=== PATIENT | female | born 1940 | race Caucasian/White ===

== ENCOUNTER 2017-09-20 17:16 | Inpatient (IN) | payer MEDICARE, MEDICAID ==
[~2017-09-20] VITALS: Ht 170.2 cm; Wt 74.6 kg
[2017-09-20] MEDS: normal saline 1000ml 1,000 ML IV SCH (19:37)
[2017-09-20] MEDS ORDERED: ondansetron/PF 4mg/2ml inj IV PRN (19:40)
[2017-09-20] MEDS ORDERED: potassium CL 20mEq in D5-1/2NS 1,000 ML IV PRN (19:44)
[2017-09-20] MEDS: K and/or MAG REPLACEMENT MC SCH (19:45)
[2017-09-20] MEDS ORDERED: sodium phosphate inj. 30 MMOL in dextrose 5%-water 250 ML IV PRN (19:45)
[2017-09-20] MEDS ORDERED: potassium Cl 40MEQ/NS 500ml 500 ML IV PRN (19:45)
[2017-09-20] MEDS ORDERED: sodium phosphate inj. 15 MMOL in dextrose 5%-water 150 ML IV PRN (19:45)
[2017-09-20] MEDS ORDERED: insulin regular, human vial - multi-dose SQ PRN (20:55)
[2017-09-20 20:57] LABS: CLARITY,URINE CLEAR (Clear); COLOR,URINE YELLOW (Yellow); GLUCOSE, URINE >=1000 mg/dl (Neg); KETONES,URINE 40 mg/dl (Neg); LEUKOCYTE ESTERASE ,URINE NEGATIVE (Neg); NITRITES, URINE NEGATIVE (Neg); OCCULT BLOOD,URINE LARGE (Neg); PROTEIN,URINE 30 mg/dl (Neg); UROBILINOGEN,URINE 0.2 E.U/dL (0.2-1.0)
[2017-09-20 21:00] VITALS: BP 102/40
[2017-09-20 21:00] LABS: UA COLLECTION TYPE NON-SPECIFIED
[2017-09-20 21:19] LABS: RBC,URINE 20-50 /HPF (0-2); WBC,URINE 0-4 /HPF (0-4)
[2017-09-20 21:20] LABS: AMORPHOUS URATES 2+; BACTERIA,URINE FEW /HPF (Neg); MUCUS STRANDS FEW /LPF (Neg); SQUAMOUS EPITHELIAL CELL,UR FEW /LPF (FEW)
[2017-09-20 21:20] LABS: BASOPHILS # (AUTO) 0.1 X10'3 (0-0.2); BASOPHILS % (AUTO) 0.2 % (0-1); EOSINOPHILS % (AUTO) 0.2 % (0-6); HEMOGLOBIN 11.6 g/dl (12.0-16.0); LYMPHOCYTES # (AUTO) 2.1 X10'3 (1.1-4.8); LYMPHOCYTES % (AUTO) 9.7 % (21-51); MEAN CORPUSCULAR HEMOGLOBIN 28.8 PG (27.0-31.0); MEAN CORPUSCULAR HGB CONC 33.3 % (33.0-36.5); MEAN CORPUSCULAR VOLUME 86.5 FL (78-98); MEAN PLATELET VOLUME 9.8 FL (7.4-10.4); MONOCYTES # (AUTO) 1.4 X10'3 (0-0.9); MONOCYTES % (AUTO) 6.6 % (2-12); NEUTROPHILS % (AUTO) 83.3 % (42-75); PLATELET COUNT 236 X10'3 (140-440); RED BLOOD COUNT 4.04 X10'6 (4.20-5.60); RED CELL DISTRIBUTION WIDTH 14.1 % (11.5-14.5); WHITE BLOOD COUNT 21.7 X10'3 (4.5-11.0)
[2017-09-20 21:21] LABS: CELLULAR CAST 0-4 /LPF (NEGATIVE); FINE GRANULAR CAST 0-3 /LPF (NEGATIVE)
[2017-09-20] MEDS: pantoprazole 40 MG vial IV SCH (21:28)
[2017-09-20 21:43] LABS: ALANINE AMINOTRANSFERASE 31 U/L (12-78); ALBUMIN 2.8 G/DL (3.4-5.0); ALKALINE PHOSPHATASE 158 IU/L (46-116); ANION GAP 24 (8-16); ASPARTATE AMINO TRANSFERASE 35 U/L (10-37); BILIRUBIN,TOTAL 0.4 MG/DL (0.1-1.0); BLOOD UREA NITROGEN 72 MG/DL (7-18); BUN/CREATININE RATIO 32.7 (6.6-38.0); CALCIUM 7.2 MG/DL (8.5-10.1); CHLORIDE 107 MMOL/L (99-107); MAGNESIUM 2.1 MG/DL (1.5-2.4); PHOSPHORUS 5.3 MG/DL (2.3-4.5); POTASSIUM 4.1 MMOL/L (3.5-5.1); SODIUM 141 MMOL/L (135-145); TOTAL PROTEIN 5.5 G/DL (6.4-8.2); eGFR 22 ML/MIN
[2017-09-20 21:47] LABS: TOTAL CARBON DIOXIDE 9.9 MMOL/L (24-32)
[2017-09-20 21:48] LABS: INR 1.2 INR; PROTHROMBIN TIME 12.1 SECONDS (9.0-12.0); TROPONIN I 4.35 NG/ML (0.0-0.05)
[2017-09-20] MEDS: insulin regular, DKA only 100 UNIT in normal saline 100ml IV soln 99 ML IV SCH ×2 (21:59)
[2017-09-20 22:00] VITALS: BP 102/44
[2017-09-20 22:03] LABS: GLUCOSE 639 MG/DL (70-104)
[2017-09-20 22:43] LABS: PARTIAL THROMBOPLASTIN TIME > 153 SECONDS (22-32)
[2017-09-20 23:00] VITALS: BP 97/45
[2017-09-20 23:11] LABS: ABG BASE EXCESS -15.2 mmol/L (-2.0-3.0); ABG OXYGEN SATURATION 96.6 % (95-98); ABG PCO2 (T) 22.2 mmHg (32.0-45.0); ABG PH (T) 7.268 (7.350-7.450); ABG PO2 (T) 83.8 mmHg (83-108); ALLEN'S TEST Positive; FCOHb 0.3 % (0.5-1.5); FMetHb 0.1 % (0.3-1.12); FO2Hb 96.2 % (94-100); PATIENT TEMPERATURE 36.2; RESPIRATORY RATE (OBSERVED) 16 b/min; TOTAL HEMOGLOBIN 12.1 G/dl (12.0-16.0)
[2017-09-20 23:15] LABS: PLATELET ESTIMATE NORMAL; TOTAL CELLS COUNTED 100
[2017-09-20 23:29] LABS: ALBUMIN 2.7 G/DL (3.4-5.0); ANION GAP 21 (8-16); BLOOD UREA NITROGEN 70 MG/DL (7-18); BUN/CREATININE RATIO 31.7 (6.6-38.0); CALCIUM 7.7 MG/DL (8.5-10.1); CHLORIDE 111 MMOL/L (99-107); CREATININE 2.21 MG/DL (0.40-0.90); PHOSPHORUS 3.8 MG/DL (2.3-4.5); POTASSIUM 3.8 MMOL/L (3.5-5.1); SODIUM 143 MMOL/L (135-145); eGFR 22 ML/MIN
[2017-09-20 23:35] LABS: GLUCOSE 557 MG/DL (70-104); TOTAL CARBON DIOXIDE 10.9 MMOL/L (24-32)
[2017-09-21] VITALS (23 sets, daily range): BP systolic 105–178; BP diastolic 44–80
[2017-09-21] MEDS: insulin regular, DKA only 100 UNIT in normal saline 100ml IV soln 99 ML IV SCH ×18 (00:05→23:59)
[2017-09-21 02:51] LABS: ALANINE AMINOTRANSFERASE 32 U/L (12-78); ALBUMIN 2.6 G/DL (3.4-5.0); ALBUMIN/GLOBULIN RATIO 1.1 (1.1-1.5); ALKALINE PHOSPHATASE 133 IU/L (46-116); ANION GAP 15 (8-16); ASPARTATE AMINO TRANSFERASE 53 U/L (10-37); BILIRUBIN,TOTAL 0.3 MG/DL (0.1-1.0); BLOOD UREA NITROGEN 74 MG/DL (7-18); BUN/CREATININE RATIO 33.8 (6.6-38.0); CALCIUM 7.3 MG/DL (8.5-10.1); CHLORIDE 114 MMOL/L (99-107); CREATININE 2.19 MG/DL (0.40-0.90); MAGNESIUM 1.9 MG/DL (1.5-2.4); PHOSPHORUS 2.5 MG/DL (2.3-4.5); SODIUM 146 MMOL/L (135-145); TOTAL CARBON DIOXIDE 16.7 MMOL/L (24-32); eGFR 22 ML/MIN
[2017-09-21] MEDS ORDERED: insulin R INFUSION 1 ML IV ONE (03:00)
[2017-09-21 03:02] LABS: TROPONIN I 13.21 NG/ML (0.0-0.05)
[2017-09-21 03:23] LABS: GLUCOSE 397 MG/DL (70-104)
[2017-09-21] MEDS: normal saline 1000ml 1,000 ML IV SCH ×3 (04:01→19:37)
[2017-09-21] MEDS ORDERED: potassium Cl 40MEQ/NS 500ml 500 ML IV ONE (04:14)
[2017-09-21 05:22] LABS: BASOPHILS % (AUTO) 0.1 % (0-1); EOSINOPHILS % (AUTO) 0 % (0-6); HEMATOCRIT 33.3 % (35.0-45.0); HEMOGLOBIN 11.4 g/dl (12.0-16.0); LYMPHOCYTES # (AUTO) 0.9 X10'3 (1.1-4.8); LYMPHOCYTES % (AUTO) 5.4 % (21-51); MEAN CORPUSCULAR HEMOGLOBIN 29.2 PG (27.0-31.0); MEAN CORPUSCULAR HGB CONC 34.1 % (33.0-36.5); MEAN CORPUSCULAR VOLUME 85.7 FL (78-98); MEAN PLATELET VOLUME 9.9 FL (7.4-10.4); MONOCYTES # (AUTO) 1.1 X10'3 (0-0.9); MONOCYTES % (AUTO) 6.1 % (2-12); NEUTROPHILS # (AUTO) 15.5 X10'3 (1.8-7.7); NEUTROPHILS % (AUTO) 88.4 % (42-75); PLATELET COUNT 221 X10'3 (140-440); RED BLOOD COUNT 3.89 X10'6 (4.20-5.60); RED CELL DISTRIBUTION WIDTH 14.3 % (11.5-14.5); WHITE BLOOD COUNT 17.5 X10'3 (4.5-11.0)
[2017-09-21] MEDS ORDERED: dextrose 5%-1/2 normal saline 1,000 ML IV SCH (05:26)
[2017-09-21 05:32] LABS: INR 1.1 INR; PARTIAL THROMBOPLASTIN TIME 28 SECONDS (22-32); PROTHROMBIN TIME 11.4 SECONDS (9.0-12.0)
[2017-09-21 06:06] LABS: ALBUMIN 2.7 G/DL (3.4-5.0); ANION GAP 14 (8-16); BLOOD UREA NITROGEN 71 MG/DL (7-18); CALCIUM 7.6 MG/DL (8.5-10.1); CHLORIDE 116 MMOL/L (99-107); CREATININE 2.15 MG/DL (0.40-0.90); PHOSPHORUS 2.5 MG/DL (2.3-4.5); SODIUM 147 MMOL/L (135-145); TOTAL CARBON DIOXIDE 16.6 MMOL/L (24-32); eGFR 22 ML/MIN
[2017-09-21 06:19] LABS: GLUCOSE 268 MG/DL (70-104)
[2017-09-21] MEDS ORDERED: insulin glargine (Lantus) pen - multi-dose SQ ONE (06:45)
[2017-09-21] MEDS: heparin 10,000 units/1 ML INJ IV PRN (06:59)
[2017-09-21] MEDS: K and/or MAG REPLACEMENT MC SCH (07:38)
[2017-09-21 08:18] LABS: TROPONIN I 17.57 NG/ML (0.0-0.05)
[2017-09-21] MEDS: pantoprazole 40 MG vial IV SCH (08:33)
[2017-09-21] MEDS ORDERED: ATOR40TA72 PO (09:39)
[2017-09-21] MEDS ORDERED: LISI40TA4 PO (09:39)
[2017-09-21] MEDS ORDERED: NOVLG (09:39)
[2017-09-21] MEDS ORDERED: LANTUS SQ (09:39)
[2017-09-21] MEDS ORDERED: LATA2.5D2 RIGHTEYE (09:39)
[2017-09-21] MEDS ORDERED: CLOP75TA35 PO (09:39)
[2017-09-21] MEDS ORDERED: AMLO5TAB16 PO (09:39)
[2017-09-21] MEDS ORDERED: CARV6.253 PO (09:39)
[2017-09-21 10:36] LABS: ALANINE AMINOTRANSFERASE 36 U/L (12-78); ALBUMIN 2.9 G/DL (3.4-5.0); ALBUMIN/GLOBULIN RATIO 1.1 (1.1-1.5); ALKALINE PHOSPHATASE 139 IU/L (46-116); ANION GAP 14 (8-16); ASPARTATE AMINO TRANSFERASE 77 U/L (10-37); BILIRUBIN,TOTAL 0.3 MG/DL (0.1-1.0); BLOOD UREA NITROGEN 69 MG/DL (7-18); CALCIUM 7.8 MG/DL (8.5-10.1); CHLORIDE 117 MMOL/L (99-107); CREATININE 1.97 MG/DL (0.40-0.90); GLUCOSE 179 MG/DL (70-104); POTASSIUM 3.8 MMOL/L (3.5-5.1); SODIUM 147 MMOL/L (135-145); TOTAL CARBON DIOXIDE 15.9 MMOL/L (24-32); TOTAL PROTEIN 5.6 G/DL (6.4-8.2); eGFR 25 ML/MIN
[2017-09-21 10:47] LABS: CLARITY,URINE CLOUDY (Clear); COLOR,URINE YELLOW (Yellow); GLUCOSE, URINE NEGATIVE (Neg); KETONES,URINE TRACE mg/dl (Neg); LEUKOCYTE ESTERASE ,URINE TRACE (Neg); NITRITES, URINE NEGATIVE (Neg); OCCULT BLOOD,URINE LARGE (Neg); PROTEIN,URINE 30 mg/dl (Neg); UROBILINOGEN,URINE 0.2 E.U/dL (0.2-1.0)
[2017-09-21 10:55] LABS: TOTAL PROTEIN,URINE RANDOM 74.2 MG/DL
[2017-09-21 10:56] LABS: SODIUM,URINE RANDOM < 15 MEQ/L
[2017-09-21 10:59] LABS: UA COLLECTION TYPE FOLEY CATH
[2017-09-21 11:02] LABS: AMORPHOUS URATES 3+; BACTERIA,URINE NONE SEEN /HPF (Neg); MUCUS STRANDS NONE SEEN /LPF (Neg); RBC,URINE TNTC /HPF (0-2); RENAL CELLS, URINE FEW /HPF; SQUAMOUS EPITHELIAL CELL,UR FEW /LPF (FEW); TRANSITIONAL EPI CELLS,URINE FEW /HPF
[2017-09-21] MEDS: aspirin 325mg tablet PO SCH (12:10)
[2017-09-21 12:28] LABS: UA EOSINOPHILS NO EOS /HPF
[2017-09-21 15:39] LABS: ALANINE AMINOTRANSFERASE 39 U/L (12-78); ALBUMIN 2.9 G/DL (3.4-5.0); ALKALINE PHOSPHATASE 141 IU/L (46-116); ANION GAP 13 (8-16); ASPARTATE AMINO TRANSFERASE 83 U/L (10-37); BILIRUBIN,TOTAL 0.4 MG/DL (0.1-1.0); BLOOD UREA NITROGEN 65 MG/DL (7-18); BUN/CREATININE RATIO 36.7 (6.6-38.0); CHLORIDE 115 MMOL/L (99-107); CREATININE 1.77 MG/DL (0.40-0.90); GLUCOSE 229 MG/DL (70-104); POTASSIUM 4.2 MMOL/L (3.5-5.1); SODIUM 148 MMOL/L (135-145); TOTAL CARBON DIOXIDE 19.9 MMOL/L (24-32); TOTAL PROTEIN 5.7 G/DL (6.4-8.2); eGFR 28 ML/MIN
[2017-09-21] MEDS ORDERED: dextrose 50%-water 50ml dispensing syringe IV PRN (16:10)
[2017-09-21] MEDS ORDERED: insulin regular, human inj. 100 UNITS in normal saline 100ml IV soln 100 ML IV SCH ×2 (16:40)
[2017-09-21] MEDS: tirofiban 5mg in NS 100mL 100 ML IV SCH (17:24)
[2017-09-21 19:51] LABS: ALBUMIN 2.8 G/DL (3.4-5.0); ANION GAP 12 (8-16); BLOOD UREA NITROGEN 62 MG/DL (7-18); BUN/CREATININE RATIO 35.2 (6.6-38.0); CALCIUM 7.7 MG/DL (8.5-10.1); CHLORIDE 115 MMOL/L (99-107); CREATININE 1.76 MG/DL (0.40-0.90); POTASSIUM 3.6 MMOL/L (3.5-5.1); SODIUM 146 MMOL/L (135-145); TOTAL CARBON DIOXIDE 18.8 MMOL/L (24-32); eGFR 28 ML/MIN
[2017-09-21 19:53] LABS: GLUCOSE 252 MG/DL (70-104)
[2017-09-21] MEDS: carvedilol 6.25mg tablet PO SCH (20:00)
[2017-09-21] MEDS ORDERED: insulin glargine (Lantus) pen - multi-dose SQ SCH (21:00)
[2017-09-21] MEDS: dextrose 5%-1/2 normal saline 1,000 ML IV SCH ×2 (21:50→23:07)
[2017-09-22] VITALS (24 sets, daily range): BP systolic 126–185; BP diastolic 55–111
[2017-09-22 01:57] LABS: INR 1.1 INR; PROTHROMBIN TIME 11.2 SECONDS (9.0-12.0)
[2017-09-22] MEDS: normal saline 1000ml 1,000 ML IV SCH (03:37)
[2017-09-22] MEDS: insulin regular, DKA only 100 UNIT in normal saline 100ml IV soln 99 ML IV SCH ×8 (05:17→07:49)
[2017-09-22] MEDS: tirofiban 5mg in NS 100mL 100 ML IV SCH ×2 (05:29→23:13)
[2017-09-22] MEDS: dextrose 5%-1/2 normal saline 1,000 ML IV SCH (05:30)
[2017-09-22 05:47] LABS: BASOPHILS % (AUTO) 0.1 % (0-1); EOSINOPHILS % (AUTO) 0.2 % (0-6); HEMATOCRIT 34.6 % (35.0-45.0); HEMOGLOBIN 11.7 g/dl (12.0-16.0); LYMPHOCYTES # (AUTO) 0.8 X10'3 (1.1-4.8); LYMPHOCYTES % (AUTO) 5.9 % (21-51); MEAN CORPUSCULAR HEMOGLOBIN 28.9 PG (27.0-31.0); MEAN CORPUSCULAR HGB CONC 33.8 % (33.0-36.5); MEAN CORPUSCULAR VOLUME 85.4 FL (78-98); MEAN PLATELET VOLUME 10.1 FL (7.4-10.4); MONOCYTES # (AUTO) 0.8 X10'3 (0-0.9); MONOCYTES % (AUTO) 5.4 % (2-12); NEUTROPHILS # (AUTO) 12.8 X10'3 (1.8-7.7); NEUTROPHILS % (AUTO) 88.4 % (42-75); PLATELET COUNT 200 X10'3 (140-440); RED BLOOD COUNT 4.05 X10'6 (4.20-5.60); RED CELL DISTRIBUTION WIDTH 14.3 % (11.5-14.5); WHITE BLOOD COUNT 14.4 X10'3 (4.5-11.0)
[2017-09-22 06:08] LABS: ALANINE AMINOTRANSFERASE 37 U/L (12-78); ALBUMIN 2.5 G/DL (3.4-5.0); ALBUMIN/GLOBULIN RATIO 0.9 (1.1-1.5); ALKALINE PHOSPHATASE 122 IU/L (46-116); ANION GAP 13 (8-16); ASPARTATE AMINO TRANSFERASE 67 U/L (10-37); BILIRUBIN,TOTAL 0.5 MG/DL (0.1-1.0); BLOOD UREA NITROGEN 43 MG/DL (7-18); BUN/CREATININE RATIO 36.1 (6.6-38.0); CALCIUM 7.9 MG/DL (8.5-10.1); CHLORIDE 115 MMOL/L (99-107); CREATININE 1.19 MG/DL (0.40-0.90); MAGNESIUM 1.7 MG/DL (1.5-2.4); PHOSPHORUS 2.7 MG/DL (2.3-4.5); POTASSIUM 3.2 MMOL/L (3.5-5.1); SODIUM 147 MMOL/L (135-145); TOTAL CARBON DIOXIDE 19.5 MMOL/L (24-32); TOTAL PROTEIN 5.2 G/DL (6.4-8.2); eGFR 44 ML/MIN
[2017-09-22 06:10] LABS: GLUCOSE 225 MG/DL (70-104)
[2017-09-22 06:41] LABS: TROPONIN I 7.19 NG/ML (0.0-0.05)
[2017-09-22] MEDS: heparin 10,000 units/1 ML INJ IV PRN ×2 (06:46→13:41)
[2017-09-22] MEDS: pantoprazole 40 MG vial IV SCH (07:55)
[2017-09-22] MEDS: K and/or MAG REPLACEMENT MC SCH (08:00)
[2017-09-22] MEDS: clopidogrel 75mg tablet PO SCH (08:00)
[2017-09-22] MEDS: potassium Cl 40MEQ/NS 500ml 500 ML IV PRN (08:03)
[2017-09-22] MEDS: atorvastatin 20mg tablet PO SCH (09:00)
[2017-09-22] MEDS: carvedilol 6.25mg tablet PO SCH ×2 (09:00→20:16)
[2017-09-22] MEDS: lisinopril 20mg tablet PO SCH (09:00)
[2017-09-22] MEDS: amLODIPine 5mg tablet PO SCH (09:00)
[2017-09-22] MEDS ORDERED: insulin glargine (Lantus) pen - multi-dose SQ SCH (09:29)
[2017-09-22] MEDS ORDERED: glucagon, human recombinant 1mg kit SUBCUT PRN (09:30)
[2017-09-22] MEDS ORDERED: MESSAGE TO PHARMACY PO ONE (09:30)
[2017-09-22] MEDS ORDERED: dextrose 50%-water 50ml dispensing syringe IV PRN (09:30)
[2017-09-22] MEDS: aspirin 325mg tablet PO SCH (09:53)
[2017-09-22] MEDS: insulin Lispro (HumaLOG) vial - multi-dose SQ SCH (13:39)
[2017-09-22] MEDS: acetylcysteine 200 MG/ml 4ml vial PO SCH (20:16)
[2017-09-22] MEDS: sodium bicarbonate (8.4%) inj. 150 MEQ in sodium chloride 0.45% 1,000 ML IV SCH (23:38)
[2017-09-23] VITALS (24 sets, daily range): BP systolic 116–188; BP diastolic 50–97
[2017-09-23 03:44] LABS: BASOPHILS % (AUTO) 0.3 % (0-1); EOSINOPHILS # (AUTO) 0.1 X10'3 (0-0.9); EOSINOPHILS % (AUTO) 1.3 % (0-6); HEMATOCRIT 33.8 % (35.0-45.0); HEMOGLOBIN 11.5 g/dl (12.0-16.0); LYMPHOCYTES # (AUTO) 1.2 X10'3 (1.1-4.8); LYMPHOCYTES % (AUTO) 12.9 % (21-51); MEAN CORPUSCULAR HEMOGLOBIN 28.9 PG (27.0-31.0); MEAN CORPUSCULAR HGB CONC 33.9 % (33.0-36.5); MEAN CORPUSCULAR VOLUME 85.4 FL (78-98); MEAN PLATELET VOLUME 9.3 FL (7.4-10.4); MONOCYTES # (AUTO) 0.7 X10'3 (0-0.9); MONOCYTES % (AUTO) 7.2 % (2-12); NEUTROPHILS # (AUTO) 7.3 X10'3 (1.8-7.7); NEUTROPHILS % (AUTO) 78.3 % (42-75); PLATELET COUNT 173 X10'3 (140-440); RED BLOOD COUNT 3.96 X10'6 (4.20-5.60); RED CELL DISTRIBUTION WIDTH 14.5 % (11.5-14.5); WHITE BLOOD COUNT 9.4 X10'3 (4.5-11.0)
[2017-09-23 03:48] LABS: ALANINE AMINOTRANSFERASE 42 U/L (12-78); ALBUMIN 2.5 G/DL (3.4-5.0); ALBUMIN/GLOBULIN RATIO 0.9 (1.1-1.5); ALKALINE PHOSPHATASE 124 IU/L (46-116); ANION GAP 9 (8-16); ASPARTATE AMINO TRANSFERASE 45 U/L (10-37); BLOOD UREA NITROGEN 24 MG/DL (7-18); BUN/CREATININE RATIO 27.9 (6.6-38.0); CALCIUM 7.8 MG/DL (8.5-10.1); CHLORIDE 110 MMOL/L (99-107); CREATININE 0.86 MG/DL (0.40-0.90); MAGNESIUM 1.7 MG/DL (1.5-2.4); PHOSPHORUS 1.8 MG/DL (2.3-4.5); POTASSIUM 3.1 MMOL/L (3.5-5.1); SODIUM 145 MMOL/L (135-145); TOTAL CARBON DIOXIDE 25.6 MMOL/L (24-32); TOTAL PROTEIN 5.3 G/DL (6.4-8.2); eGFR 64 ML/MIN
[2017-09-23 03:49] LABS: GLUCOSE 229 MG/DL (70-104)
[2017-09-23 04:00] LABS: INR 1.1 INR; PROTHROMBIN TIME 11.4 SECONDS (9.0-12.0)
[2017-09-23] MEDS: K and/or MAG REPLACEMENT MC SCH (07:20)
[2017-09-23] MEDS: clopidogrel 75mg tablet PO SCH (08:00)
[2017-09-23] MEDS: insulin glargine (Lantus) pen - multi-dose SQ SCH (08:00)
[2017-09-23] MEDS: carvedilol 6.25mg tablet PO SCH ×2 (08:03→20:40)
[2017-09-23] MEDS: atorvastatin 20mg tablet PO SCH (08:03)
[2017-09-23] MEDS: potassium Cl 40MEQ/NS 500ml 500 ML IV PRN (08:03)
[2017-09-23] MEDS: amLODIPine 5mg tablet PO SCH (08:03)
[2017-09-23] MEDS: lisinopril 20mg tablet PO SCH (08:03)
[2017-09-23] MEDS: pantoprazole 40 MG vial IV SCH (08:08)
[2017-09-23] MEDS: aspirin 325mg tablet PO SCH (08:30)
[2017-09-23] MEDS: sodium bicarbonate (8.4%) inj. 150 MEQ in sodium chloride 0.45% 1,000 ML IV SCH (10:00)
[2017-09-23] MEDS: acetylcysteine 200 MG/ml 4ml vial PO SCH ×2 (10:00→20:40)
[2017-09-23] MEDS ORDERED: hydrALAZINE 20mg/ml inj. IV ONE (13:15)
[2017-09-23] MEDS: insulin Lispro (HumaLOG) vial - multi-dose SQ SCH ×3 (14:53→20:52)
[2017-09-23] MEDS: tirofiban 5mg in NS 100mL 100 ML IV SCH (15:22)
[2017-09-24] VITALS (18 sets, daily range): BP systolic 124–191; BP diastolic 42–88
[2017-09-24] MEDS: sodium bicarbonate (8.4%) inj. 150 MEQ in sodium chloride 0.45% 1,000 ML IV SCH ×2 (00:50→07:15)
[2017-09-24 01:15] LABS: INR 1.1 INR; PARTIAL THROMBOPLASTIN TIME 60 SECONDS (22-32); PROTHROMBIN TIME 11.2 SECONDS (9.0-12.0)
[2017-09-24 05:22] LABS: BASOPHILS % (AUTO) 0.4 % (0-1); EOSINOPHILS # (AUTO) 0.1 X10'3 (0-0.9); EOSINOPHILS % (AUTO) 1.1 % (0-6); HEMATOCRIT 32.5 % (35.0-45.0); HEMOGLOBIN 11.2 g/dl (12.0-16.0); LYMPHOCYTES % (AUTO) 12.5 % (21-51); MEAN CORPUSCULAR HEMOGLOBIN 28.9 PG (27.0-31.0); MEAN CORPUSCULAR HGB CONC 34.5 % (33.0-36.5); MEAN CORPUSCULAR VOLUME 83.9 FL (78-98); MONOCYTES # (AUTO) 0.7 X10'3 (0-0.9); MONOCYTES % (AUTO) 8.3 % (2-12); NEUTROPHILS # (AUTO) 6.2 X10'3 (1.8-7.7); NEUTROPHILS % (AUTO) 77.7 % (42-75); PLATELET COUNT 142 X10'3 (140-440); RED BLOOD COUNT 3.87 X10'6 (4.20-5.60); RED CELL DISTRIBUTION WIDTH 14.5 % (11.5-14.5)
[2017-09-24] MEDS ORDERED: insulin regular, human 10 units/0.1 ml syringe SQ ONE (05:35)
[2017-09-24] MEDS ORDERED: NPH, human insulin isophane inj. SQ ONE (05:35)
[2017-09-24 05:46] LABS: ALANINE AMINOTRANSFERASE 38 U/L (12-78); ALBUMIN 2.4 G/DL (3.4-5.0); ALBUMIN/GLOBULIN RATIO 0.9 (1.1-1.5); ALKALINE PHOSPHATASE 123 IU/L (46-116); ANION GAP 11 (8-16); ASPARTATE AMINO TRANSFERASE 26 U/L (10-37); BILIRUBIN,TOTAL 1.1 MG/DL (0.1-1.0); BLOOD UREA NITROGEN 20 MG/DL (7-18); BUN/CREATININE RATIO 23.3 (6.6-38.0); CALCIUM 7.5 MG/DL (8.5-10.1); CHLORIDE 104 MMOL/L (99-107); CREATININE 0.86 MG/DL (0.40-0.90); MAGNESIUM 1.4 MG/DL (1.5-2.4); PHOSPHORUS 2.4 MG/DL (2.3-4.5); SODIUM 145 MMOL/L (135-145); TOTAL CARBON DIOXIDE 30.2 MMOL/L (24-32); TOTAL PROTEIN 5.1 G/DL (6.4-8.2); eGFR 64 ML/MIN
[2017-09-24 05:48] LABS: POTASSIUM 2.9 MMOL/L (3.5-5.1)
[2017-09-24] MEDS ORDERED: potassium Cl 20 mEq SR tablet PO PRN (06:10)
[2017-09-24] MEDS ORDERED: potassium Cl 40MEQ/NS 500ml 500 ML IV PRN (06:25)
[2017-09-24 06:31] LABS: GLUCOSE 363 MG/DL (70-104)
[2017-09-24] MEDS: tirofiban 5mg in NS 100mL 100 ML IV SCH (07:10)
[2017-09-24] MEDS ORDERED: magnesium 4gm in 100ml NS 100 ML IV PRN (07:15)
[2017-09-24] MEDS ORDERED: magnesium 2GM in 50ml NS 50 ML IV PRN (07:15)
[2017-09-24] MEDS: potassium Cl 40MEQ/NS 500ml 500 ML IV PRN ×2 (07:46→13:41)
[2017-09-24] MEDS: clopidogrel 75mg tablet PO SCH (08:00)
[2017-09-24] MEDS: K and/or MAG REPLACEMENT MC SCH ×2 (08:00→08:26)
[2017-09-24] MEDS: carvedilol 6.25mg tablet PO SCH ×2 (08:23→20:15)
[2017-09-24] MEDS: atorvastatin 20mg tablet PO SCH ×2 (08:23→20:15)
[2017-09-24] MEDS: insulin glargine (Lantus) pen - multi-dose SQ SCH (08:25)
[2017-09-24] MEDS: pantoprazole 40 MG vial IV SCH (08:25)
[2017-09-24] MEDS: aspirin 325mg tablet PO SCH (08:25)
[2017-09-24] MEDS: lisinopril 20mg tablet PO SCH (08:25)
[2017-09-24] MEDS: magnesium Cl slow-release 64mg tablet PO PRN (08:25)
[2017-09-24] MEDS: amLODIPine 5mg tablet PO SCH (08:26)
[2017-09-24] MEDS: acetylcysteine 200 MG/ml 4ml vial PO SCH ×2 (10:01→20:55)
[2017-09-24] MEDS ORDERED: nitroGLYCERIN-Tridil 50MG/D5W 250 ML IV ONE (11:00)
[2017-09-24] MEDS ORDERED: midazolam 2 mg/2 ml injection ONE (11:00)
[2017-09-24] MEDS ORDERED: LIDOcaine 1%/PF (10mg/ml) 5ml vial ONE (11:00)
[2017-09-24] MEDS ORDERED: iohexol 350MG/ML 100ml bottle IV ONE (11:00)
[2017-09-24] MEDS ORDERED: heparin 1,000unit/ml 10ml vial 10 ML ONE (11:00)
[2017-09-24] MEDS ORDERED: iohexol 350 MG/ML 50ML vial IV ONE (11:00)
[2017-09-24] MEDS ORDERED: fentaNYL/PF 50MCG/1 ML 2ML syringe ONE (11:00)
[2017-09-24] MEDS ORDERED: aspirin 325mg tablet PO ONE (13:05)
[2017-09-24] MEDS ORDERED: aspirin 81mg tab.chew PO ONE ×2 (13:30→15:30)
[2017-09-24] MEDS: furosemide 20 MG/2 ML vial IV SCH ×2 (13:41→20:14)
[2017-09-24 15:30] LABS: ISTAT HGB ART 9.9 g/dl (12.0-16.0); ISTAT Hct ART 29 %PCV (35-48); ISTAT O2 SATURATION ARTERIAL 65 % (95-98); ISTAT SOURCE ART
[2017-09-24] MEDS ORDERED: hydrALAZINE 20mg/ml inj. IV PRN (17:10)
[2017-09-24] MEDS: insulin Lispro (HumaLOG) vial - multi-dose SQ SCH (20:12)
[2017-09-24] MEDS: potassium Cl 20 mEq SR tablet PO PRN (23:25)
[2017-09-25 03:15] VITALS: BP 154/51
[2017-09-25] MEDS: potassium Cl 20 mEq SR tablet PO PRN (03:16)
[2017-09-25 07:00] VITALS: BP 163/53
[2017-09-25] MEDS: pantoprazole 40 MG vial IV SCH (07:12)
[2017-09-25] MEDS: carvedilol 6.25mg tablet PO SCH ×2 (07:13→20:31)
[2017-09-25] MEDS: clopidogrel 75mg tablet PO SCH (07:13)
[2017-09-25] MEDS: potassium Cl 20 mEq SR tablet PO SCH (07:13)
[2017-09-25] MEDS: lisinopril 20mg tablet PO SCH (07:13)
[2017-09-25] MEDS: amLODIPine 5mg tablet PO SCH (07:14)
[2017-09-25] MEDS: enoxaparin 30mg/0.3ml syringe SUBCUT SCH ×2 (07:18→20:32)
[2017-09-25] MEDS: aspirin 81mg tab.chew PO SCH (07:37)
[2017-09-25] MEDS: insulin glargine (Lantus) pen - multi-dose SQ SCH (07:46)
[2017-09-25] MEDS: K and/or MAG REPLACEMENT MC SCH (08:00)
[2017-09-25] MEDS ORDERED: normal saline 250ml IV soln 250 ML IV ONE (08:00)
[2017-09-25] MEDS ORDERED: aspirin 325mg tablet PO SCH (08:30)
[2017-09-25 08:49] LABS: BASOPHILS % (AUTO) 0.1 % (0-1); EOSINOPHILS # (AUTO) 0.2 X10'3 (0-0.9); EOSINOPHILS % (AUTO) 2.3 % (0-6); HEMATOCRIT 34.8 % (35.0-45.0); HEMOGLOBIN 11.8 g/dl (12.0-16.0); LYMPHOCYTES # (AUTO) 0.9 X10'3 (1.1-4.8); LYMPHOCYTES % (AUTO) 13.3 % (21-51); MEAN CORPUSCULAR HEMOGLOBIN 28.9 PG (27.0-31.0); MEAN CORPUSCULAR VOLUME 85.1 FL (78-98); MONOCYTES # (AUTO) 0.8 X10'3 (0-0.9); MONOCYTES % (AUTO) 10.8 % (2-12); NEUTROPHILS # (AUTO) 5.1 X10'3 (1.8-7.7); NEUTROPHILS % (AUTO) 73.5 % (42-75); PLATELET COUNT 153 X10'3 (140-440); RED BLOOD COUNT 4.09 X10'6 (4.20-5.60); RED CELL DISTRIBUTION WIDTH 14.2 % (11.5-14.5)
[2017-09-25] MEDS: insulin Lispro (HumaLOG) vial - multi-dose SQ SCH ×3 (08:59→20:38)
[2017-09-25 09:20] LABS: ALANINE AMINOTRANSFERASE 24 U/L (12-78); ALBUMIN 2.5 G/DL (3.4-5.0); ALBUMIN/GLOBULIN RATIO 0.8 (1.1-1.5); ALKALINE PHOSPHATASE 135 IU/L (46-116); ANION GAP 6 (8-16); ASPARTATE AMINO TRANSFERASE 23 U/L (10-37); BILIRUBIN,TOTAL 0.8 MG/DL (0.1-1.0); BLOOD UREA NITROGEN 14 MG/DL (7-18); BUN/CREATININE RATIO 17.7 (6.6-38.0); CALCIUM 8.3 MG/DL (8.5-10.1); CHLORIDE 102 MMOL/L (99-107); CREATININE 0.79 MG/DL (0.40-0.90); MAGNESIUM 1.9 MG/DL (1.5-2.4); PHOSPHORUS 2.8 MG/DL (2.3-4.5); SODIUM 140 MMOL/L (135-145); TOTAL CARBON DIOXIDE 31.8 MMOL/L (24-32); TOTAL PROTEIN 5.5 G/DL (6.4-8.2); eGFR 71 ML/MIN
[2017-09-25 09:22] LABS: GLUCOSE 407 MG/DL (70-104)
[2017-09-25] MEDS: acetylcysteine 200 MG/ml 4ml vial PO SCH (10:03)
[2017-09-25] MEDS: furosemide 40mg tablet PO SCH (10:04)
[2017-09-25 11:00] VITALS: BP 128/51
[2017-09-25 15:00] VITALS: BP 138/49
[2017-09-25 19:00] VITALS: BP 137/40
[2017-09-25] MEDS: atorvastatin 20mg tablet PO SCH (20:31)
[2017-09-25 23:00] VITALS: BP 156/62
[2017-09-26 03:00] VITALS: BP 155/43
[2017-09-26 05:10] LABS: BASOPHILS % (AUTO) 0.1 % (0-1); EOSINOPHILS # (AUTO) 0.3 X10'3 (0-0.9); EOSINOPHILS % (AUTO) 4.2 % (0-6); HEMATOCRIT 34.5 % (35.0-45.0); HEMOGLOBIN 11.7 g/dl (12.0-16.0); LYMPHOCYTES # (AUTO) 1.5 X10'3 (1.1-4.8); LYMPHOCYTES % (AUTO) 21.8 % (21-51); MEAN CORPUSCULAR HEMOGLOBIN 28.8 PG (27.0-31.0); MEAN CORPUSCULAR HGB CONC 33.9 % (33.0-36.5); MEAN CORPUSCULAR VOLUME 84.9 FL (78-98); MEAN PLATELET VOLUME 10.2 FL (7.4-10.4); MONOCYTES # (AUTO) 0.9 X10'3 (0-0.9); MONOCYTES % (AUTO) 12.8 % (2-12); NEUTROPHILS # (AUTO) 4.3 X10'3 (1.8-7.7); NEUTROPHILS % (AUTO) 61.1 % (42-75); PLATELET COUNT 185 X10'3 (140-440); RED BLOOD COUNT 4.07 X10'6 (4.20-5.60); RED CELL DISTRIBUTION WIDTH 14.4 % (11.5-14.5)
[2017-09-26 05:34] LABS: ALANINE AMINOTRANSFERASE 33 U/L (12-78); ALBUMIN 2.4 G/DL (3.4-5.0); ALBUMIN/GLOBULIN RATIO 0.8 (1.1-1.5); ALKALINE PHOSPHATASE 131 IU/L (46-116); ANION GAP 5 (8-16); ASPARTATE AMINO TRANSFERASE 26 U/L (10-37); BILIRUBIN,TOTAL 0.6 MG/DL (0.1-1.0); BLOOD UREA NITROGEN 12 MG/DL (7-18); BUN/CREATININE RATIO 15.4 (6.6-38.0); CALCIUM 8.2 MG/DL (8.5-10.1); CHLORIDE 103 MMOL/L (99-107); CHOLESTEROL 115 MG/DL (0-200); CREATININE 0.78 MG/DL (0.40-0.90); HDL CHOLESTEROL 33 MG/DL (35-60); MAGNESIUM 1.4 MG/DL (1.5-2.4); PHOSPHORUS 2.9 MG/DL (2.3-4.5); POTASSIUM 3.2 MMOL/L (3.5-5.1); SODIUM 142 MMOL/L (135-145); TOTAL CARBON DIOXIDE 34.4 MMOL/L (24-32); TOTAL PROTEIN 5.4 G/DL (6.4-8.2); eGFR 72 ML/MIN
[2017-09-26 05:35] LABS: CHOL/HDL RATIO 3.5 (0.00-4.99); GLUCOSE 253 MG/DL (70-104); LDL CHOLESTEROL 69 MG/DL (50-100); TRIGLYCERIDES 94 MG/DL (20-135)
[2017-09-26 05:46] LABS: ISTAT HGB ART 9.5 g/dl (12.0-16.0); ISTAT Hct ART 28 %PCV (35-48); ISTAT O2 SATURATION ARTERIAL 92 % (95-98); ISTAT SOURCE ART
[2017-09-26 07:00] VITALS: BP 173/53
[2017-09-26] MEDS: aspirin 81mg tab.chew PO SCH (07:44)
[2017-09-26] MEDS: potassium Cl 20 mEq SR tablet PO SCH (07:44)
[2017-09-26] MEDS: clopidogrel 75mg tablet PO SCH (07:44)
[2017-09-26] MEDS: amLODIPine 5mg tablet PO SCH (07:45)
[2017-09-26] MEDS: furosemide 40mg tablet PO SCH (07:45)
[2017-09-26] MEDS: pantoprazole 40 MG vial IV SCH (07:45)
[2017-09-26] MEDS: carvedilol 6.25mg tablet PO SCH (07:45)
[2017-09-26] MEDS: enoxaparin 30mg/0.3ml syringe SUBCUT SCH (07:46)
[2017-09-26] MEDS: lisinopril 20mg tablet PO SCH (07:46)
[2017-09-26] MEDS: magnesium Cl slow-release 64mg tablet PO PRN (07:51)
[2017-09-26] MEDS: insulin glargine (Lantus) pen - multi-dose SQ SCH (08:05)
[2017-09-26 11:00] VITALS: BP 145/102
[2017-09-26] MEDS ORDERED: amLODIPine 5mg tablet PO ONE (11:00)
[2017-09-26] MEDS ORDERED: carVEDilol 12.5mg tablet PO SCH (20:00)
[2017-09-27] MEDS ORDERED: insulin glargine (Lantus) pen - multi-dose SQ SCH (08:00)
== END 2017-09-26 13:10 | DRG 280 ==
LOC: ICU 2S 19:36 → CICU 2S 09-21 17:00 → PCU 3S 09-24 16:07
PROVIDERS: ADMIT Internal Medicine Critical Care Medicine; ATTEND Family Medicine
PROC: 4A023N8 Measurement of Cardiac Sampling and Pressure, Bilateral, Percutaneous Approach (ICD-10-PCS; principal; 2017-09-24)
PROC: B2111ZZ Fluoroscopy of Multiple Coronary Arteries using Low Osmolar Contrast (ICD-10-PCS; 2017-09-24)
PROC: B2151ZZ Fluoroscopy of Left Heart using Low Osmolar Contrast (ICD-10-PCS; 2017-09-24)
DX: I21.4 Non-ST elevation (NSTEMI) myocardial infarction (principal); E11.10 Type 2 diabetes mellitus with ketoacidosis without coma; G93.41 Metabolic encephalopathy; N17.9 Acute kidney failure, unspecified; I69.351 Hemiplegia and hemiparesis following cerebral infarction affecting right dominant side; E11.22 Type 2 diabetes mellitus with diabetic chronic kidney disease; N18.9 Chronic kidney disease, unspecified; I12.9 Hypertensive chronic kidney disease with stage 1 through stage 4 chronic kidney disease, or unspecified chronic kidney disease; E78.5 Hyperlipidemia, unspecified; G89.29 Other chronic pain; I25.10 Atherosclerotic heart disease of native coronary artery without angina pectoris; Z60.2 Problems related to living alone; Z66 Do not resuscitate; Z95.5 Presence of coronary angioplasty implant and graft; Z90.49 Acquired absence of other specified parts of digestive tract; Z79.899 Other long term (current) drug therapy; Z79.01 Long term (current) use of anticoagulants; Z79.4 Long term (current) use of insulin; Z79.02 Long term (current) use of antithrombotics/antiplatelets
CPT/HCPCS: 36415; 36600; 70544; 70551; 71045; 80048; 80053; 80061; 81001; 82570; 82803; 82948; 83036; 83605; 83735; 83880; 84100; 84132; 84145; 84156; 84300; 84439; 84443; 84484; 85014; 85018; 85025; 85610; 85730; 87040; 87070; 87077; 87186; 87207; 92616; 93005; 93306; 93460; 97110; 97116; 97161; 97530; 99152; 99153; A4315; A4620; A6213; A6257; A6258; A6446; C1760; C1769; C9113; J0360; J1644; J1650; J1815; J1940; J2001; J2250; J3010; J3246; J3475; J3480; J3490; J7030; Q9967